=== PATIENT | female | born 1995 | race Caucasian/White ===

== ENCOUNTER 2023-08-30 14:32 | Outpatient (CLI) | payer MEDICAID, SELFPAY ==
[2023-08-30 19:25] LABS: Cholesterol 176 mg/dL (0-200); HDL Direct 61 mg/dL; Triglycerides 82 mg/dL (<150)
[2023-08-30 19:36] LABS: Hemoglobin A1C 4.7 % (<5.7); LDL Cholesterol Direct 103 mg/dL
[2023-08-30 20:10] LABS: Free T4 Free Thyroxine 1.02 ng/mL (0.78-2.19)
[2023-09-01 07:37] LABS: DHEA-Sulfate 135 mcg/dL (14-349); Prolactin 7.6 ng/mL; Triiodothyronine T3 Free 3.7 pg/mL (2.3-4.2)
[2023-09-04 09:49] LABS: Testosterone Free 6.9 pg/mL (0.1-6.4); Testosterone Total 49 ng/dL (2-45)
== END 2023-08-30 14:33 | disposition home or self-care (01) ==
LOC: ANHGOSHLAB 14:34
PROVIDERS: Visit Provider Obstetrics & Gynecology
DX: N92.6 Irregular menstruation, unspecified (principal)
CPT/HCPCS: 36415; 80061; 82627; 83036; 83498; 84146; 84402; 84403; 84439; 84443; 84481